=== PATIENT | male | born 1945 | race Caucasian/White ===

== ENCOUNTER 2021-11-22 12:42 | Emergency (ER) | payer OTHER ==
[2021-11-22 13:05] VITALS: BMI 36.1
[2021-11-22] MEDS ORDERED: BEBTELOVIMAB (EUA) 175 MG/2 ML VIAL IVPUSH ONE (13:07)
[2021-11-22 14:40] VITALS: BP 121/58; PULSE 71; TEMP 98.4
== END 2021-11-22 14:58 | disposition home or self-care (01) ==
LOC: JER 12:42 → JCOVINFU 12:42
PROC: 3E033GC Introduction of Other Therapeutic Substance into Peripheral Vein, Percutaneous Approach (ICD-10-PCS; principal; 2021-11-22)
DX: U07.1 COVID-19 (principal)
CPT/HCPCS: 99284-25; M0222; Q0222